=== PATIENT | male | born 1970 | race African-American/Black ===

== ENCOUNTER 2022-06-29 04:09 | Inpatient (IN) | payer MEDICAID ==
[~2022-06-29] VITALS: Ht 177.8 cm; Wt 73.0 kg
--- NOTE | 2022-06-29 06:18 | NUR ---
BIBS FOR ABDOMINAL PAIN RADIAITING TO THE BACK. -N/V/D. PT IS A/O X 4, VSS, NAD. TOMY ROBERT.
--- NOTE | 2022-06-29 06:23 | NUR ---
PT GIVEN CUP FOR URINE SAMPLE
--- NOTE | 2022-06-29 06:51 | NUR ---
COMPLIANCE REVIEWER AT BEDSIDE
[2022-06-29 07:00] LABS: BASOPHILS % (AUTO) 0.3 % (0.0-2.0); EOSINOPHILS % (AUTO) 0.6 % (0.0-6.0); HEMATOCRIT 26 % (39-51); HEMOGLOBIN 8.5 g/dL (13.5-17.5); LYMPHOCYTES # (AUTO) 0.8 K/uL (0.8-4.8); LYMPHOCYTES % (AUTO) 8.5 % (20.0-44.0); MEAN CORPUSCULAR HGB CONC 32 g/dl (31.0-36.0); MEAN CORPUSCULAR VOLUME 83 fL (80-96); MONOCYTES # (AUTO) 0.9 K/uL (0.1-1.30); MONOCYTES % (AUTO) 10.4 % (2.0-12.0); NEUTROPHILS # (AUTO) 7.1 K/uL (1.8-8.9); NEUTROPHILS % (AUTO) 80.2 % (43.0-81.0); PLATELET COUNT (AUTO) 502 K/uL (150-450); RED BLOOD CELL COUNT(AUTO) 3.18 MIL/uL (4.5-6.0); WHITE BLOOD COUNT (AUTO) 8.9 K/uL (4.3-11.0)
[2022-06-29] MEDS ORDERED: IV NS 0.9% 1,000 ML IV ONE (07:00)
--- NOTE | 2022-06-29 07:04 | NUR ---
REPORT GIVEN TO COLLEEN MENDOSA FOR CASSIDY
[2022-06-29 07:19] LABS: ALBUMIN 2.6 g/dL (3.4-5.0); BILIRUBIN,DIRECT 0.2 mg/dL (0.0-0.2); BILIRUBIN,TOTAL 0.8 mg/dL (0.2-1.0); POTASSIUM 4.2 mmol/L (3.5-5.1); TOTAL PROTEIN, SERUM 7.2 g/dL (6.4-8.2)
--- NOTE | 2022-06-29 08:10 | NUR ---
BLOOD CULTURES OBTAINED
--- NOTE | 2022-06-29 08:22 | NUR ---
COVID SWAB DONE. SENT TO LAB
[2022-06-29] MEDS ORDERED: PIPERACILLIN /TAZOBACTAM 3.375 G in IV D5W 50 ML IV ONE (08:30)
[2022-06-29] MEDS ORDERED: IOHEXOL-300 100 ML VIAL IV ONE (09:01)
[2022-06-29] MEDS ORDERED: CT SWABBABLE VALVE TRANS SET 1 EA INFUS.SET MC ONE (09:01)
[2022-06-29] MEDS ORDERED: IV NS 0.9% 250 ML IV ONE (09:01)
[2022-06-29] MEDS ORDERED: DIATR MEGLU/DIATRIZOATE SODIUM 30 ML BOTTLE (GASTROGRAPHIN) ONE (09:01)
--- NOTE | 2022-06-29 09:45 | NUR ---
ROOM [id number]
--- NOTE | 2022-06-29 10:00 | NUR ---
Report given to DEONDRE Chou
[2022-06-29 10:35] VITALS: BP 121/76
--- NOTE | 2022-06-29 10:35 | NUR ---
MS DRY WALL PLASTERER NOTES: RECEIVED REPORT BY PHONE FROM HUONG MACIAS RN. PT CAME TO UNIT VIA GURNEY, AMBULATED WITH STEADY GAIT TO BED. A/O X4, ABLE TO MAKE NEEDS KNOWN. VITALS WNL, ON RA WITH NO S/S OF SOB. DENIES PAIN AT THIS TIME. IV ACCESS AT L FA#20, SL, PATENT AND INTACT. SKIN ASSESSMENT DONE, NO ISSUES NOTED, BELONGINGS ACCOUNTED FOR AT BEDSIDE. ALL SAFETY MEASURES IN PLACE, CALL LIGHT AND TABLE WITHIN EASY REACH; WILL CONT WITH PLAN OF CARE DURING SHIFT.
--- NOTE | 2022-06-29 10:39 | NUR ---
PATIENT TRANSFERRED TO [facility] WITHOUT INCIDENT. ALL CARE ENDORSED TO DEONDRE TORRES
[2022-06-29] MEDS ORDERED: MORPHINE SULFATE INJ 2 MG/ML DISP.SYRIN IV PRN (13:30)
[2022-06-29] MEDS ORDERED: Z GUARD REMEDY 4 OZ OINT TP PRN (13:30)
[2022-06-29] MEDS ORDERED: ACETAMINOPHEN 325 MG TABLET PO PRN (13:30)
[2022-06-29] MEDS ORDERED: MAG HYDROX/AL HYDROX/SIMETH 30 ML UDC PO PRN (13:30)
[2022-06-29] MEDS ORDERED: HYDROCODONE/APAP 5/325MG TABLET PO PRN (13:30)
[2022-06-29] MEDS ORDERED: MAGNESIUM HYDROXIDE 30 ML UDC PO PRN (13:30)
[2022-06-29] MEDS ORDERED: ONDANSETRON HCL/PF 4 MG/2 ML VIAL IVP PRN (13:30)
[2022-06-29] MEDS: ZOSYN IVPB 3.375 G in IV D5W 50ml IV SCH ×2 (14:49→19:52)
[2022-06-29] MEDS: IV NS 0.9% 1,000 ML IV PRN (14:49)
[2022-06-29 15:57] VITALS: BP 129/83
--- NOTE | 2022-06-29 18:59 | NUR ---
MS RN CLOSING NOTES: PT ASLEEP, EASILY ROUSED, A/O X4, ABLE TO MAKE NEEDS KNOWN. VITALS WNL, ON RA WITH NO S/S OF SOB. DENIES PAIN AT THIS TIME. IV ACCESS AT L FA#20 RUNNING NS @ 75ML/HR. PT ON NPO STATUS. ALL SAFETY MEASURES IN PLACE, CALL LIGHT AND TABLE WITHIN EASY REACH; WILL ENDORSE TO PM SHIFT.
--- NOTE | 2022-06-29 19:34 | NUR ---
RN OPENING NOTE; RECEIVED PT IN BED AWAKED AOX4 ABLE TO MAKE NEEDS KNOWN,ON RM AIR ZBIGNIEW WELL SAT 99%,NO SOB/DISTRESS NOTED,NO COMPLAIN OF PAIN/DISCOMFORT AT THIS TIME,IV ACCESS ON LFA 20G WITH NS INFUSING WELL,SAFETY MEASURE IN PLACE,CALL LIGHT WITHIN REACH,WILL CONTINUE TO MONITOR.
[2022-06-29 19:46] LABS: BILIRUBIN,URINE NEGATIVE (NEGATIVE); COLOR,URINE YELLOW (YELLOW); LEUKOCYTE ESTERASE ,URINE NEGATIVE (NEGATIVE); NITRITE, URINE NEGATIVE (NEGATIVE); PROTEIN,URINE NEGATIVE (NEGATIVE); UGLUCOSE NEGATIVE (NEGATIVE)
[2022-06-29 20:00] VITALS: BP 118/67
[2022-06-29 20:07] LABS: BACTERIA,URINE None seen /HPF (None Seen); RBC,URINE 0-2 /HPF (0-2); SPERM,URINE Few /HPF (None Seen); SQUAMOUS EPITHELIAL CELL,UR Rare /HPF (None Seen); WBC,URINE NONE SEEN /HPF (0-3)
[2022-06-30] MEDS: ZOSYN IVPB 3.375 G in IV D5W 50ml IV SCH ×4 (02:19→21:13)
[2022-06-30 05:46] LABS: BASOPHILS # (AUTO) 0.1 K/uL (0.0-0.2); BASOPHILS % (AUTO) 0.8 % (0.0-2.0); EOSINOPHILS % (AUTO) 0.8 % (0.0-6.0); HEMATOCRIT 29 % (39-51); HEMOGLOBIN 9.1 g/dL (13.5-17.5); LYMPHOCYTES # (AUTO) 0.5 K/uL (0.8-4.8); LYMPHOCYTES % (AUTO) 7.1 % (20.0-44.0); MEAN CORPUSCULAR HGB CONC 32 g/dl (31.0-36.0); MEAN CORPUSCULAR VOLUME 82 fL (80-96); MONOCYTES # (AUTO) 0.5 K/uL (0.1-1.30); MONOCYTES % (AUTO) 7.4 % (2.0-12.0); NEUTROPHILS # (AUTO) 5.9 K/uL (1.8-8.9); NEUTROPHILS % (AUTO) 83.9 % (43.0-81.0); PLATELET COUNT (AUTO) 546 K/uL (150-450); RED BLOOD CELL COUNT(AUTO) 3.48 MIL/uL (4.5-6.0); WHITE BLOOD COUNT (AUTO) 7.1 K/uL (4.3-11.0)
[2022-06-30] MEDS: IV NS 0.9% 1,000 ML IV PRN ×2 (05:57→21:15)
--- NOTE | 2022-06-30 06:26 | NUR ---
RN CLOSING NOTE; PATIENT IN BED SLEEPING BUT EASY TO AROUSED'AOX4 ABLE TO MAKE NEEDS KNOWN,ON RM AIR ZBIGNIEW WELL SAT 99%,NO SOB/DISTRESS NOTED,NO COMPLAIN OF PAIN/DISCOMFORT DURING SHIFT,DUE MEDS GIVEN ORDER,ALL NEEDS ATTENDED,IV ACCESS ON LFA 20G WITH NS 75ML/HR INFUSING WELL,SAFETY MEASURE IN PLACE,CALL LIGHT WITHIN REACH,WILL ENDORSED TO NEXT SHIFT.
[2022-06-30 06:36] LABS: CALCIUM, SERUM 8.7 mg/dL (8.5-10.1); CREATININE 1.1 mg/dL (0.6-1.3); PHOSPHORUS 4.5 mg/dL (2.5-4.9)
[2022-06-30 07:00] VITALS: BP 122/58
--- NOTE | 2022-06-30 07:25 | NUR ---
MS RN OPENING NOTE RECEIVED PATIENT ASLEEP IN BED, AWAKENS TO VERBAL STIMULI, A/O X3, STABLE ON ROOM AIR, BREATHING EVEN AND UNLABORED. NO S/S OF DISTRESS NOTED; NO PAIN NOTED AT THIS TIME. WITH IV ACCESS AT LFA G#20 WITH RUNNING NS AT 75 ML/HOUR INFUSING WELL. SAFETY MEASURES IMPLEMENTED, BED LOCKED IN LOWEST POSITION, SIDE RAILS UP X 2, CALL LIGHT AND TABLE WITHIN REACH; WILL CONTINUE TO MONITOR PATIENT THROUGHOUT SHIFT.
--- NOTE | 2022-06-30 07:31 | NUR ---
RN NOTE; PT WAS NPO SINCE MIDNIGHT.
[2022-06-30 09:59] VITALS: BP 122/58
[2022-06-30 16:00] VITALS: BP 104/63
[2022-06-30] MEDS ORDERED: CLON0.5T PO (18:48)
--- NOTE | 2022-06-30 19:26 | NUR ---
MS RN CLOSING NOTE PATIENT AWAKE IN BED A/O X4. ON ROOM AIR, NO S/S OF DISTRESS AND NO SOB NOTED. ABLE TO MAKE NEEDS KNOWN. PATIENT HAS IV AT LFA WITH NS AT 75ML/HOUR, INFUSING WELL. DUE MEDICATIONS ADMINISTERED. ALL NEEDS ATTENDED AND ANTICIPATED. FALL AND SAFETY PRECAUTION IN PLACE: BED LOCKED AND AT THE LOWEST POSITION, SIDE RAILS UP X2, CALL LIGHT WITHIN REACH. WILL ENDORSE TO PARTNER NURSE.
--- NOTE | 2022-06-30 19:30 | NUR ---
MS RN OPENING NOTES RECEIVED PATIENT IN BED AWAKE, ALERT AND ORIENTED. A/O X 4. NO S/S OF PAIN NOTED AT THIS ITME. ON ROOM AIR, BREATHING EVEN AND UNLABORED, NO DISTRESS OR SOB NOTED. IV ACCESS LFA #20G RUNNING NS @ 75ML/HR, INFUSING WELL. SAFETY MEASURES IN PLACE WITH BED IN LOWEST LOCKED POSITION. SIDE RAILS UP X 2. CALL LIGHT AND TABLE WITHIN EASY REACH. WILL CONTINUE TO MONITOR THE PATIENT.
[2022-06-30 20:00] VITALS: BP 117/61
[2022-07-01] MEDS: ZOSYN IVPB 3.375 G in IV D5W 50ml IV SCH ×4 (02:20→20:10)
[2022-07-01 05:56] LABS: BASOPHILS % (AUTO) 0.8 % (0.0-2.0); EOSINOPHILS % (AUTO) 1.5 % (0.0-6.0); HEMATOCRIT 28 % (39-51); HEMOGLOBIN 8.6 g/dL (13.5-17.5); LYMPHOCYTES # (AUTO) 0.6 K/uL (0.8-4.8); LYMPHOCYTES % (AUTO) 10.4 % (20.0-44.0); MEAN CORPUSCULAR HGB CONC 31 g/dl (31.0-36.0); MEAN CORPUSCULAR VOLUME 83 fL (80-96); MONOCYTES # (AUTO) 0.5 K/uL (0.1-1.30); MONOCYTES % (AUTO) 9.4 % (2.0-12.0); NEUTROPHILS # (AUTO) 4.3 K/uL (1.8-8.9); NEUTROPHILS % (AUTO) 77.9 % (43.0-81.0); PLATELET COUNT (AUTO) 594 K/uL (150-450); RED BLOOD CELL COUNT(AUTO) 3.34 MIL/uL (4.5-6.0); WHITE BLOOD COUNT (AUTO) 5.6 K/uL (4.3-11.0)
[2022-07-01 06:07] LABS: CALCIUM, SERUM 8.5 mg/dL (8.5-10.1); CREATININE 1.2 mg/dL (0.6-1.3); PHOSPHORUS 4.3 mg/dL (2.5-4.9); POTASSIUM 3.6 mmol/L (3.5-5.1)
--- NOTE | 2022-07-01 07:00 | NUR ---
MS RN OPENING NOTES: RECEIVED PATIENT IN BED, ALERT/AWAKE AND ORIENTED X 3 AND ABLE TO MAKE NEEDS KNOWN. NO SOB OR CARDIAC DISTRESS NOTED.PT DENIES PAIN AT THIS TIME.ON NPO. IV ACCESS ON LFA GAUGE 20 PATENT AND INTACT AND INFUSING NS 1L@M 75ML/HR. SAFETY MEASURES MAINTAIN. BED LOCKED AND IN LOWEST POSITION. SIDE RAILS UP X2. CALL LIGHT IN EASY REACH AND WILL MONITOR ACCORDINGLY.
--- NOTE | 2022-07-01 07:00 | NUR ---
MS RN OPENING NOTES: RECEIVED PATIENT IN BED, ALERT/AWAKE AND ORIENTED X 4 AND ABLE TO MAKE NEEDS KNOWN. NO SOB OR CARDIAC DISTRESS NOTED.PT DENIES PAIN AT THIS TIME.IV ACCESS ON CAROLYN MIDLINE PATENT AND INTACT AND INFUSING NS 1L@M 75ML/HR. SAFETY MEASURES MAINTAIN. BED LOCKED AND IN LOWEST POSITION. SIDE RAILS UP X2. CALL LIGHT IN EASY REACH AND WILL MONITOR ACCORDINGLY.
--- NOTE | 2022-07-01 07:01 | NUR ---
MS RN CLOSING NOTES PATIENT IN BED AWAKE, ALERT AND ORIENTED. A/O X 4. NO S/S OF PAIN NOTED AT THIS ITME. ON ROOM AIR, BREATHING EVEN AND UNLABORED, NO DISTRESS OR SOB NOTED. IV ACCESS LFA #20G RUNNING NS @ 75ML/HR, INFUSING WELL. ALL NEEDS ATTENDED. SAFETY MEASURES MAINTAINED. WILL ENDORSE TO THE NEXT SHIFT.
[2022-07-01 08:28] VITALS: BP 107/56
[2022-07-01] MEDS: IV NS 0.9% 1,000 ML IV PRN (13:25)
[2022-07-01 16:14] VITALS: BP 96/48
--- NOTE | 2022-07-01 17:50 | NUR ---
RN NOTES: SEEN AND EXAMINED BY RENETTA PIERRE, ORDERED TO EDUCATE PT ABOUT DIVERTICULITIS AND REFER TO BARREL LAPPER, START FULL LIQUIDS IN AM AND ADVANCE TOLERATED. ORDERS NOTED AND CARRIED OUT.
--- NOTE | 2022-07-01 18:37 | NUR ---
MS RN CLOSING NOTES: PATIENT IN BED AWAKE, ALERT AND ORIENTED X 4 AND ABLE TO MAKE NEEDS KNOWN. NO COMPLAIN OF ABDOMINAL PAIN ON OUR SHIFT. NO CARDIAC DISTRESS NOTED. PT IS ON CLEAR LIQUIDS NOW AND TOLERATED WELL. IV ACCESS ON LFA GAUGE 20,PATENT, INTACT AND INFUSING NS 1L @75ML/HR. SAFETY MEASURES MAINTAINED: BED LOCKED AND IN LOWEST POSITION, SIDE RAILS UP X 2. CALL LIGHT IN EASY REACH FOR HELP. WILL ENDORSE TO [facility] SHIFT FOR CONTINUITY OF CARE.
--- NOTE | 2022-07-01 19:30 | NUR ---
noc rn opening note received patient in bed, a/ox3, no s.s of apparent distress on room air. denies pain at this time, LFA #20g running NS @75mls/hr. safety in bed, bed in lowest, locked position, call light within reach, side rails upX2. Patient encouraged to use the call light. will continue with patient's plan of care.
[2022-07-01 20:00] VITALS: BP 113/70
[2022-07-02] MEDS: ZOSYN IVPB 3.375 G in IV D5W 50ml IV SCH ×4 (02:01→20:00)
[2022-07-02] MEDS: IV NS 0.9% 1,000 ML IV PRN (02:55)
[2022-07-02 06:03] LABS: BASOPHILS % (AUTO) 0.9 % (0.0-2.0); EOSINOPHILS % (AUTO) 2.3 % (0.0-6.0); HEMATOCRIT 26 % (39-51); LYMPHOCYTES # (AUTO) 0.7 K/uL (0.8-4.8); LYMPHOCYTES % (AUTO) 18.2 % (20.0-44.0); MEAN CORPUSCULAR HGB CONC 32 g/dl (31.0-36.0); MEAN CORPUSCULAR VOLUME 82 fL (80-96); MONOCYTES # (AUTO) 0.5 K/uL (0.1-1.30); MONOCYTES % (AUTO) 11.8 % (2.0-12.0); NEUTROPHILS # (AUTO) 2.7 K/uL (1.8-8.9); NEUTROPHILS % (AUTO) 66.8 % (43.0-81.0); PLATELET COUNT (AUTO) 528 K/uL (150-450); RED BLOOD CELL COUNT(AUTO) 3.11 MIL/uL (4.5-6.0)
[2022-07-02 06:24] LABS: CALCIUM, SERUM 8.4 mg/dL (8.5-10.1); CREATININE 1.1 mg/dL (0.6-1.3); MAGNESIUM 2.2 mg/dL (1.8-2.4); PHOSPHORUS 3.6 mg/dL (2.5-4.9); POTASSIUM 3.8 mmol/L (3.5-5.1)
--- NOTE | 2022-07-02 07:00 | NUR ---
MS RN OPENING NOTES: RECEIVED PATIENT IN BED, ASLEEP AND EASILY AROUSED AND ORIENTED X 4 AND ABLE TO MAKE NEEDS KNOWN. NO SOB OR CARDIAC DISTRESS NOTED.PT DENIES PAIN AT THIS TIME.IV ACCESS ON CAROLYN MIDLINE PATENT AND INTACT AND INFUSING NS 1L@M 75ML/HR. SAFETY MEASURES MAINTAIN. BED LOCKED AND IN LOWEST POSITION. SIDE RAILS UP X2. CALL LIGHT IN EASY REACH AND WILL MONITOR ACCORDINGLY.
--- NOTE | 2022-07-02 07:20 | NUR ---
noc rn closing note patient in bed with eyes closed, easy to arouse no s/s of apparent distress on room air . did not c/o pain throughout shift. IV ns running @75mls/hr at this time. all needs attended. all scheduled medications administered. safety kept in place throughout shift. endorsed to Valeri morning shift rn for continuity of patient care.
[2022-07-02 08:16] VITALS: BP 94/55
[2022-07-02] MEDS: DOCUSATE SODIUM 100 MG CAPSULE PO SCH (08:42)
[2022-07-02 15:59] VITALS: BP 97/56
--- NOTE | 2022-07-02 16:47 | NUR ---
RN NOTES: SEEN AND EXAMINED BY RENETTA PIERRE. INFORMED THAT PT HAD BM AND ABLE TO WALK AND STABLE.ORDERED ADVANCE DIET TO SOFT DIET, EDUCATE ABOUT THE DISEASE, MAY DC IV FLUIDS.ORDERS NOTED AND CARRIED OUT.
--- NOTE | 2022-07-02 18:48 | NUR ---
MS RN CLOSING NOTES: PATIENT IN BED AWAKE, ALERT AND ORIENTED X 4 AND ABLE TO MAKE NEEDS KNOWN. NO COMPLAIN OF ABDOMINAL PAIN ON OUR SHIFT. NO CARDIAC DISTRESS NOTED. IV ACCESS ON LFA GAUGE 20,PATENT, INTACT AND SALINE LOCKED. SAFETY MEASURES MAINTAINED: BED LOCKED AND IN LOWEST POSITION, SIDERAILS UP X 2. CALL LIGHT IN EASY REACH FOR HELP. WILL ENDORSE TO [facility] SHIFT FOR CONTINUITY OF CARE.
--- NOTE | 2022-07-02 19:30 | NUR ---
noc rn opening note received patient in bed, a/ox4, no s/s of apparent distress on room air. denies pain at this time. Reports having X2 BM today. LFA #20g on saline lock. safety in place-- bed in lowest, locked position, call light within reach, side rails upX2. Patient encouraged to use the call light. will continue with patient's plan of care.
[2022-07-02 20:00] VITALS: BP 102/59
[2022-07-03] MEDS: ZOSYN IVPB 3.375 G in IV D5W 50ml IV SCH ×2 (02:11→08:32)
[2022-07-03 06:23] LABS: BASOPHILS % (AUTO) 0.5 % (0.0-2.0); EOSINOPHILS % (AUTO) 2.5 % (0.0-6.0); HEMATOCRIT 27 % (39-51); HEMOGLOBIN 8.4 g/dL (13.5-17.5); LYMPHOCYTES # (AUTO) 0.8 K/uL (0.8-4.8); LYMPHOCYTES % (AUTO) 18.2 % (20.0-44.0); MEAN CORPUSCULAR HGB CONC 31 g/dl (31.0-36.0); MEAN CORPUSCULAR VOLUME 82 fL (80-96); MONOCYTES # (AUTO) 0.4 K/uL (0.1-1.30); MONOCYTES % (AUTO) 9.3 % (2.0-12.0); NEUTROPHILS % (AUTO) 69.5 % (43.0-81.0); PLATELET COUNT (AUTO) 573 K/uL (150-450); RED BLOOD CELL COUNT(AUTO) 3.27 MIL/uL (4.5-6.0); WHITE BLOOD COUNT (AUTO) 4.3 K/uL (4.3-11.0)
[2022-07-03 06:50] LABS: CALCIUM, SERUM 8.6 mg/dL (8.5-10.1); PHOSPHORUS 3.6 mg/dL (2.5-4.9)
[2022-07-03 07:00] VITALS: BP 120/65
--- NOTE | 2022-07-03 07:30 | NUR ---
MS RN OPENING NOTES: RECEIVED PATIENT IN BED ASLEEP, EASILY ROUSED, A/OX 4, ABLE TO MAKE NEEDS KNOWN. ON RA WITH NO S/S OF SOB OR ACUTE DISTRESS, DENIES PAIN AT THIS TIME. IV ACCESS ON LFA #20 PATENT, INTACT AND SALINE LOCKED. SAFETY MEASURES MAINTAINED: BED LOCKED AND IN LOWEST POSITION, SIDERAILS UP X 2. CALL LIGHT AND TABLE WITHIN EASY REACH, WILL CONT WITH PLAN OF CARE DURING SHIFT.
--- NOTE | 2022-07-03 07:31 | NUR ---
noc rn closing needs attended. report given to Caro Izquierdo for continuity of patient care.
[2022-07-03] MEDS: DOCUSATE SODIUM 100 MG CAPSULE PO SCH (08:33)
[2022-07-03] MEDS ORDERED: AMOX-430 PO (12:08)
--- NOTE | 2022-07-03 13:00 | NUR ---
MS RN DC NOTES: PT IS CLEARED FOR DC. VITALS ARE WNL, STABLE ON RA. NO /S OF ACUTE DISTRESS. DC INSTRUCTIONS, BELONGINGS LISTS AND NEW MEDICATIONS DISCUSSED WITH PT, SIGNED DOCUMENTS. IV ACCESS AND ID BAND REMOVED. PT GIVEN [facility]OURCES, PT VERBALIZED HE WILL GO BACK TO PREVIOUS FACILITY, GIVEN BUS CARD. PT LEFT UNIT ON FOOT, AMBULATORY WITH STEADY GAIT.
== END 2022-07-03 13:00 | disposition home or self-care (01) | DRG 244 ==
LOC: ER 04:30 → MED 10:06
PROVIDERS: ADMIT Nurse Practitioner Acute Care; ATTEND Nurse Practitioner Acute Care
DX: K57.20 Diverticulitis of large intestine with perforation and abscess without bleeding (principal); D63.8 Anemia in other chronic diseases classified elsewhere; E87.1 Hypo-osmolality and hyponatremia; K56.0 Paralytic ileus; E86.1 Hypovolemia; D75.839 Thrombocytosis, unspecified; K59.00 Constipation, unspecified; N43.3 Hydrocele, unspecified; F17.210 Nicotine dependence, cigarettes, uncomplicated; Z59.00 Homelessness unspecified; Z20.822 Contact with and (suspected) exposure to COVID-19; F15.10 Other stimulant abuse, uncomplicated
CPT/HCPCS: 36415; 80048-TC; 80061-TC; 80076-TC; 81001; 83690-TC; 83735-TC; 84100-TC; 85025-TC; 87040-TC; 87081-TC; 87086-TC; 97110-TC; 97116-TC; A4223; C9803; G0378; G0480; J2543; J7030; J7050; J7060; Q9963; Q9967

== ENCOUNTER 2023-08-20 21:58 | Inpatient (IN) | payer MEDICAID ==
[~2023-08-20] VITALS: Ht 170.2 cm; Wt 76.7 kg
[~2023-08-20 21:58] MED LIST: AMOX-430 PO; CLON0.5T PO
[2023-08-20] MEDS ORDERED: MORPHINE SULFATE INJ 4 MG/ML DISP.SYRIN ONE (22:41)
[2023-08-20] MEDS ORDERED: ONDANSETRON HCL/PF 4 MG/2 ML VIAL ONE (22:41)
[2023-08-20] MEDS: ONDANSETRON HCL/PF 4 MG/2 ML VIAL IVP ONE (23:00)
[2023-08-20] MEDS: MORPHINE SULFATE INJ 2 MG/ML DISP.SYRIN IV ONE (23:00)
[2023-08-20] MEDS: IV NS 0.9% 1,000 ML BAG IV ONE (23:00)
[2023-08-20 23:36] LABS: APPEARANCE,URINE CLEAR (CLEAR); BILIRUBIN,URINE NEGATIVE (NEGATIVE); BLOOD, URINE NEGATIVE Ery/uL (NEGATIVE); COLOR,URINE YELLOW (YELLOW); KETONES,URINE NEGATIVE (NEGATIVE); LEUKOCYTE ESTERASE ,URINE NEGATIVE (NEGATIVE); NITRITE, URINE NEGATIVE (NEGATIVE); PROTEIN,URINE NEGATIVE (NEGATIVE); UGLUCOSE NEGATIVE (NEGATIVE); UROBILINOGEN,URINE 0.2 EU/dL (0.2)
[2023-08-20 23:41] LABS: ALANINE AMINOTRANSFERASE 7 U/L (12-78); ALKALINE PHOSPHATASE 78 U/L (46-116); ASPARTATE AMINOTRANSFERASE 13 U/L (15-37); BILIRUBIN,DIRECT 0.1 mg/dL (0.0-0.2); BILIRUBIN,TOTAL 0.3 mg/dL (0.2-1.0); CALCIUM, SERUM 8.3 mg/dL (8.5-10.1); CARBON DIOXIDE 22 mmol/L (21-32); CHLORIDE 103 mmol/L (98-107); CREATININE 0.9 mg/dL (0.6-1.3); GLUCOSE 90 mg/dL (74-106); LIPASE 42 U/L (16-77); POTASSIUM 3.4 mmol/L (3.5-5.1); SODIUM SERUM 136 mmol/L (136-145); UREA NITROGEN, BLOOD 7 mg/dL (7-18)
[2023-08-20 23:50] LABS: INR 1.06 (0.91-1.10); PARTIAL THROMBOPLASTIN TIME 20.7 SEC (24.3-34.3); PROTHROMBIN TIME 11.2 SECS (9.2-11.1)
[2023-08-21] VITALS (19 sets, daily range): BP systolic 109–136; BP diastolic 43–81; TEMP 97–99.2; O2SAT 98–100
[2023-08-21 00:15] LABS: BASOPHILS % (AUTO) 0.4 % (0.0-2.0); EOSINOPHILS % (AUTO) 0.5 % (0.0-6.0); LYMPHOCYTES # (AUTO) 1.7 K/uL (0.8-4.8); LYMPHOCYTES % (AUTO) 25.1 % (20.0-44.0); MEAN CORPUSCULAR HEMOGLOBIN 17 PG (26.0-33.0); MEAN CORPUSCULAR HGB CONC 28 g/dl (31.0-36.0); MEAN CORPUSCULAR VOLUME 61 fL (80-96); MONOCYTES # (AUTO) 0.7 K/uL (0.1-1.30); MONOCYTES % (AUTO) 9.8 % (2.0-12.0); NEUTROPHILS # (AUTO) 4.3 K/uL (1.8-8.9); NEUTROPHILS % (AUTO) 64.2 % (43.0-81.0); PLATELET COUNT (AUTO) 573 K/uL (150-450); RED BLOOD CELL COUNT(AUTO) 2.17 MIL/uL (4.5-6.0); RED CELL DISTRIBUTION WIDTH 24.9 % (11.5-15.0); WHITE BLOOD COUNT (AUTO) 6.7 K/uL (4.3-11.0)
[2023-08-21 00:22] LABS: HEMATOCRIT 13 % (39-51); HEMOGLOBIN 3.7 g/dL (13.5-17.5)
[2023-08-21] MEDS ORDERED: IOHEXOL-350 100 ML VIAL IV ONE (01:21)
[2023-08-21] MEDS ORDERED: CT SWABBABLE VALVE TRANS SET 1 EA INFUS.SET MC ONE (01:21)
[2023-08-21] MEDS ORDERED: IV NS 0.9% 250 ML IV ONE (01:21)
[2023-08-21] MEDS ORDERED: Z GUARD REMEDY 4 OZ OINT TP PRN (01:30)
[2023-08-21] MEDS ORDERED: ONDANSETRON HCL/PF 4 MG/2 ML VIAL IVP PRN (01:30)
[2023-08-21] MEDS ORDERED: MAGNESIUM HYDROXIDE 30 ML UDC PO PRN (01:30)
[2023-08-21] MEDS ORDERED: MAG HYDROX/AL HYDROX/SIMETH 30 ML UDC PO PRN (01:30)
[2023-08-21] MEDS ORDERED: ACETAMINOPHEN 325 MG TABLET PO PRN (01:30)
[2023-08-21 02:21] LABS: NEUTROPHILS % (MANUAL) 73 (42-76)
[2023-08-21 02:22] LABS: ANISOCYTOSIS 2+; EOSINOPHILS % (MANUAL) 1 % (0-4); HYPOCHROMASIA 3+; LYMPHOCYTES % (MANUAL) 15 % (16-48); MONOCYTES % (MANUAL) 11 % (0-11.0); PLATELET ESTIMATE ADEQUATE
[2023-08-21] MEDS: POTASSIUM CL. PREMIX PERIPHER. 50 ML IV SCH (05:55)
[2023-08-21] MEDS: POTASSIUM CL. PREMIX PERIPHER. 50 ML ONE (06:35)
[2023-08-21] MEDS: PANTOPRAZOLE 40 MG VIAL IV SCH (08:22)
[2023-08-21] MEDS: IV NS 0.9% 1,000 ML IV SCH (10:42)
[2023-08-21 12:34] LABS: CALCIUM, SERUM 8.2 mg/dL (8.5-10.1); CREATININE 0.8 mg/dL (0.6-1.3); POTASSIUM 3.5 mmol/L (3.5-5.1)
[2023-08-21 12:39] LABS: IRON, SERUM 80 ug/dl (50-175); TOTAL IRON BINDING CAPACITY 251 ug/dl (250-450)
[2023-08-21 13:24] LABS: BASOPHILS % (AUTO) 0.5 % (0.0-2.0); EOSINOPHILS % (AUTO) 0.4 % (0.0-6.0); LYMPHOCYTES # (AUTO) 1.6 K/uL (0.8-4.8); LYMPHOCYTES % (AUTO) 26.2 % (20.0-44.0); MEAN CORPUSCULAR HEMOGLOBIN 21 PG (26.0-33.0); MEAN CORPUSCULAR HGB CONC 31 g/dl (31.0-36.0); MEAN CORPUSCULAR VOLUME 67 fL (80-96); MONOCYTES # (AUTO) 0.4 K/uL (0.1-1.30); MONOCYTES % (AUTO) 6.8 % (2.0-12.0); NEUTROPHILS # (AUTO) 4.2 K/uL (1.8-8.9); NEUTROPHILS % (AUTO) 66.1 % (43.0-81.0); PLATELET COUNT (AUTO) 539 K/uL (150-450); RED BLOOD CELL COUNT(AUTO) 2.82 MIL/uL (4.5-6.0); RED CELL DISTRIBUTION WIDTH 30.3 % (11.5-15.0); WHITE BLOOD COUNT (AUTO) 6.3 K/uL (4.3-11.0)
[2023-08-21 13:33] LABS: HEMATOCRIT 19 % (39-51); HEMOGLOBIN 5.8 g/dL (13.5-17.5)
[2023-08-21 14:21] LABS: LYMPHOCYTES % (MANUAL) 16 % (16-48); MONOCYTES % (MANUAL) 6 % (0-11.0); NEUTROPHILS % (MANUAL) 78 (42-76); PLATELET ESTIMATE INCREASED
[2023-08-21 14:22] LABS: HYPOCHROMASIA 1+
[2023-08-21 14:23] LABS: ANISOCYTOSIS 2+
[2023-08-22] VITALS (7 sets, daily range): BP systolic 110–128; BP diastolic 68–89; TEMP 97.8–98.9; O2SAT 100
[2023-08-22 02:35] LABS: HEMOGLOBIN 7.7 g/dL (13.5-17.5)
[2023-08-22 07:41] LABS: BASOPHILS % (AUTO) 0.4 % (0.0-2.0); EOSINOPHILS % (AUTO) 0.6 % (0.0-6.0); HEMATOCRIT 24 % (39-51); HEMOGLOBIN 7.9 g/dL (13.5-17.5); LYMPHOCYTES # (AUTO) 1.2 K/uL (0.8-4.8); LYMPHOCYTES % (AUTO) 17.4 % (20.0-44.0); MEAN CORPUSCULAR HEMOGLOBIN 23 PG (26.0-33.0); MEAN CORPUSCULAR HGB CONC 32 g/dl (31.0-36.0); MEAN CORPUSCULAR VOLUME 71 fL (80-96); MONOCYTES # (AUTO) 0.6 K/uL (0.1-1.30); MONOCYTES % (AUTO) 8.2 % (2.0-12.0); NEUTROPHILS # (AUTO) 5.1 K/uL (1.8-8.9); NEUTROPHILS % (AUTO) 73.4 % (43.0-81.0); PLATELET COUNT (AUTO) 537 K/uL (150-450); RED BLOOD CELL COUNT(AUTO) 3.42 MIL/uL (4.5-6.0); RED CELL DISTRIBUTION WIDTH 31.2 % (11.5-15.0)
[2023-08-22 07:46] LABS: CALCIUM, SERUM 8.5 mg/dL (8.5-10.1); CREATININE 0.8 mg/dL (0.6-1.3); MAGNESIUM 2.1 mg/dL (1.8-2.4); PHOSPHORUS 3.4 mg/dL (2.5-4.9); POTASSIUM 3.7 mmol/L (3.5-5.1)
[2023-08-22 07:59] LABS: THYROID STIMULATING HORMONE 1.11 uIU/mL (0.358-3.74)
[2023-08-22] MEDS ORDERED: IOHEXOL-300 100 ML VIAL IV ONE (10:26)
[2023-08-22] MEDS ORDERED: IV NS 0.9% 250 ML IV ONE (10:26)
[2023-08-22 12:49] LABS: HEMOGLOBIN 8.2 g/dL (13.5-17.5)
[2023-08-22 14:39] LABS: ANISOCYTOSIS 2+; HYPOCHROMASIA 1+; LYMPHOCYTES % (MANUAL) 18 % (16-48); MONOCYTES % (MANUAL) 8 % (0-11.0); NEUTROPHILS % (MANUAL) 74 (42-76); PLATELET ESTIMATE INCREASED; TARGET CELLS 1+
[2023-08-22] MEDS: MORPHINE SULFATE INJ 2 MG/ML DISP.SYRIN IV PRN (20:37)
[2023-08-22] MEDS: IV NS 0.9% 1,000 ML IV PRN (20:37)
[2023-08-22 22:32] LABS: OCCULT BLOOD STOOL POSITIVE (NEGATIVE)
[2023-08-23] VITALS: BP 120/75; TEMP 98.9; O2SAT 100
[2023-08-23 04:00] VITALS: BP 125/70; TEMP 98; O2SAT 100
[2023-08-23 07:10] LABS: FOLIC ACID 6.3 ng/mL (>3.0)
[2023-08-23 07:14] LABS: BASOPHILS % (AUTO) 0.5 % (0.0-2.0); EOSINOPHILS % (AUTO) 0.6 % (0.0-6.0); HEMATOCRIT 23 % (39-51); HEMOGLOBIN 7.4 g/dL (13.5-17.5); LYMPHOCYTES # (AUTO) 1.4 K/uL (0.8-4.8); LYMPHOCYTES % (AUTO) 19.7 % (20.0-44.0); MEAN CORPUSCULAR HEMOGLOBIN 23 PG (26.0-33.0); MEAN CORPUSCULAR HGB CONC 32 g/dl (31.0-36.0); MEAN CORPUSCULAR VOLUME 71 fL (80-96); MONOCYTES # (AUTO) 0.7 K/uL (0.1-1.30); MONOCYTES % (AUTO) 9.7 % (2.0-12.0); NEUTROPHILS % (AUTO) 69.5 % (43.0-81.0); PLATELET COUNT (AUTO) 498 K/uL (150-450); RED BLOOD CELL COUNT(AUTO) 3.23 MIL/uL (4.5-6.0); WHITE BLOOD COUNT (AUTO) 7.1 K/uL (4.3-11.0)
[2023-08-23 07:33] LABS: CALCIUM, SERUM 8.2 mg/dL (8.5-10.1); CREATININE 0.8 mg/dL (0.6-1.3); MAGNESIUM 1.8 mg/dL (1.8-2.4); PHOSPHORUS 3.3 mg/dL (2.5-4.9); POTASSIUM 3.8 mmol/L (3.5-5.1)
[2023-08-23 08:00] VITALS: BP 139/92; TEMP 97.8; O2SAT 99
[2023-08-23 08:07] LABS: FREE KAPPA LT CHAINS SERUM 55.7 mg/L (3.3-19.4); KAPPA/LAMBDA RATIO SERUM 1.47 (0.26-1.65)
[2023-08-23 09:09] LABS: IMMUNOGLOBULIN A, SERUM 367 mg/dL (90-386); IMMUNOGLOBULIN G, SERUM 1493 mg/dL (603-1613); IMMUNOGLOBULIN M, SERUM 73 mg/dL (20-172)
[2023-08-23 12:00] VITALS: BP 130/88; TEMP 97.8; O2SAT 99
[2023-08-23 16:00] VITALS: BP 123/72; TEMP 97.9; O2SAT 99
[2023-08-23 16:06] LABS: *SPE A/G RATIO 0.6 (0.7-1.7); *SPE ALBUMIN 2.2 g/dL (2.9-4.4); *SPE ALPHA-1-GLOBULIN 0.4 g/dL (0.0-0.4); *SPE ALPHA-2-GLOBULIN 0.8 g/dL (0.4-1.0); *SPE GLOBULIN, TOTAL 3.7 g/dL (2.2-3.9); *SPE M-SPIKE Not Observed g/dL (Not Observed); *SPE PROTEIN TOTAL 5.9 g/dL (6.0-8.5); *SPEGAMMA GLOBULIN 1.5 g/dL (0.4-1.8)
[2023-08-23 20:00] VITALS: BP 110/60; TEMP 98.6; O2SAT 100
[2023-08-24] VITALS (9 sets, daily range): BP systolic 108–127; BP diastolic 61–88; TEMP 98.1–98.6; O2SAT 100
[2023-08-24] MEDS: ZOLPIDEM TARTRATE 5 MG TABLET PO PRN (03:40)
[2023-08-24 08:17] LABS: BASOPHILS % (AUTO) 0.5 % (0.0-2.0); EOSINOPHILS % (AUTO) 0.4 % (0.0-6.0); HEMATOCRIT 24 % (39-51); HEMOGLOBIN 7.5 g/dL (13.5-17.5); LYMPHOCYTES # (AUTO) 1.3 K/uL (0.8-4.8); LYMPHOCYTES % (AUTO) 15.3 % (20.0-44.0); MEAN CORPUSCULAR HEMOGLOBIN 23 PG (26.0-33.0); MEAN CORPUSCULAR HGB CONC 32 g/dl (31.0-36.0); MEAN CORPUSCULAR VOLUME 72 fL (80-96); MONOCYTES # (AUTO) 0.7 K/uL (0.1-1.30); MONOCYTES % (AUTO) 7.8 % (2.0-12.0); NEUTROPHILS # (AUTO) 6.5 K/uL (1.8-8.9); PLATELET COUNT (AUTO) 486 K/uL (150-450); RED BLOOD CELL COUNT(AUTO) 3.31 MIL/uL (4.5-6.0); RED CELL DISTRIBUTION WIDTH 33.3 % (11.5-15.0); WHITE BLOOD COUNT (AUTO) 8.5 K/uL (4.3-11.0)
[2023-08-24 10:17] LABS: CALCIUM, SERUM 8.3 mg/dL (8.5-10.1); CREATININE 0.8 mg/dL (0.6-1.3); POTASSIUM 3.6 mmol/L (3.5-5.1)
[2023-08-24 17:03] LABS: BASOPHILS % (AUTO) 0.5 % (0.0-2.0); EOSINOPHILS % (AUTO) 0.5 % (0.0-6.0); HEMATOCRIT 28 % (39-51); LYMPHOCYTES # (AUTO) 1.3 K/uL (0.8-4.8); LYMPHOCYTES % (AUTO) 15.8 % (20.0-44.0); MEAN CORPUSCULAR HEMOGLOBIN 24 PG (26.0-33.0); MEAN CORPUSCULAR HGB CONC 32 g/dl (31.0-36.0); MEAN CORPUSCULAR VOLUME 75 fL (80-96); MONOCYTES # (AUTO) 0.8 K/uL (0.1-1.30); MONOCYTES % (AUTO) 9.2 % (2.0-12.0); NEUTROPHILS # (AUTO) 6.1 K/uL (1.8-8.9); PLATELET COUNT (AUTO) 466 K/uL (150-450); RED BLOOD CELL COUNT(AUTO) 3.76 MIL/uL (4.5-6.0); RED CELL DISTRIBUTION WIDTH 32.3 % (11.5-15.0); WHITE BLOOD COUNT (AUTO) 8.2 K/uL (4.3-11.0)
[2023-08-24] MEDS: SOD FERRIC GLUC 125 MG in IV NS 0.9% 100 ML IV SCH (18:39)
[2023-08-24 19:17] LABS: LYMPHOCYTES % (MANUAL) 11 % (16-48); MONOCYTES % (MANUAL) 9 % (0-11.0); NEUTROPHILS % (MANUAL) 80 (42-76); PLATELET ESTIMATE ADEQUATE
[2023-08-24 19:19] LABS: ANISOCYTOSIS 2+; HYPOCHROMASIA 2+; TARGET CELLS 1+
[2023-08-25] VITALS: BP 133/66; TEMP 99; O2SAT 100
[2023-08-25 07:38] LABS: BASOPHILS % (AUTO) 0.3 % (0.0-2.0); EOSINOPHILS % (AUTO) 0.5 % (0.0-6.0); HEMATOCRIT 25 % (39-51); HEMOGLOBIN 8.1 g/dL (13.5-17.5); LYMPHOCYTES # (AUTO) 1.1 K/uL (0.8-4.8); LYMPHOCYTES % (AUTO) 15.3 % (20.0-44.0); MEAN CORPUSCULAR HEMOGLOBIN 24 PG (26.0-33.0); MEAN CORPUSCULAR HGB CONC 33 g/dl (31.0-36.0); MEAN CORPUSCULAR VOLUME 74 fL (80-96); MONOCYTES # (AUTO) 0.6 K/uL (0.1-1.30); MONOCYTES % (AUTO) 8.5 % (2.0-12.0); NEUTROPHILS # (AUTO) 5.2 K/uL (1.8-8.9); NEUTROPHILS % (AUTO) 75.4 % (43.0-81.0); PLATELET COUNT (AUTO) 478 K/uL (150-450); RED BLOOD CELL COUNT(AUTO) 3.39 MIL/uL (4.5-6.0); RED CELL DISTRIBUTION WIDTH 32.4 % (11.5-15.0); WHITE BLOOD COUNT (AUTO) 6.9 K/uL (4.3-11.0)
[2023-08-25 07:47] LABS: CALCIUM, SERUM 8.1 mg/dL (8.5-10.1); CREATININE 0.7 mg/dL (0.6-1.3); POTASSIUM 3.9 mmol/L (3.5-5.1)
[2023-08-25 08:00] VITALS: BP 116/65; TEMP 98.4; O2SAT 100
[2023-08-25] MEDS: PANTOPRAZOLE 40 MG TABLET.DR PO SCH (09:18)
[2023-08-25] MEDS ORDERED: PANT40TA49 PO (11:03)
== END 2023-08-25 16:12 | disposition home or self-care (01) | DRG 240 ==
LOC: ER 22:02 → TELE1 08-21 01:27 → MEDSG1 08-22 11:28
PROVIDERS: ADMIT Nurse Practitioner Acute Care; ATTEND Nurse Practitioner Acute Care
PROC: 30233N1 Transfusion of Nonautologous Red Blood Cells into Peripheral Vein, Percutaneous Approach (ICD-10-PCS; principal; 2023-08-21)
DX: C18.9 Malignant neoplasm of colon, unspecified (principal); I26.99 Other pulmonary embolism without acute cor pulmonale; E43 Unspecified severe protein-calorie malnutrition; E88.09 Other disorders of plasma-protein metabolism, not elsewhere classified; D50.0 Iron deficiency anemia secondary to blood loss (chronic); F17.200 Nicotine dependence, unspecified, uncomplicated; C78.6 Secondary malignant neoplasm of retroperitoneum and peritoneum; E87.6 Hypokalemia; Z68.26 Body mass index [BMI] 26.0-26.9, adult; Z59.00 Homelessness unspecified; Z79.899 Other long term (current) drug therapy; N30.90 Cystitis, unspecified without hematuria; D75.839 Thrombocytosis, unspecified; K92.2 Gastrointestinal hemorrhage, unspecified; B96.81 Helicobacter pylori [H. pylori] as the cause of diseases classified elsewhere
CPT/HCPCS: 36415; 71045-TC; 80048-TC; 80076-TC; 82272-TC; 82378; 82607-TC; 82728-TC; 82784; 83540-TC; 83690-TC; 83735-TC; 84100-TC; 84155; 84165; 84443-TC; 84484-TC; 85025-TC; 85027-TC; 85730-TC; 86334; 86850-TC; 87081-TC; 93970-TC; 97112-TC; 97116-TC; 97530-TC; 98960; A4223; G0378; J2270; J2405; J2470; J2916; J3480; J7030; J7040; J7050; P9016; Q9967

== ENCOUNTER 2023-12-13 01:50 | Emergency (ER) | payer MEDICAID ==
[~2023-12-13] VITALS: Ht 177.8 cm; Wt 81.6 kg
[~2023-12-13 01:50] MED LIST changes: -AMOX-430 PO; -CLON0.5T PO; +PANT40TA49 PO
[2023-12-13 02:10] VITALS: BP 121/82; TEMP 97.7; O2SAT 99
== END 2023-12-13 02:20 | disposition left against medical advice (07) ==
LOC: ER 01:54
DX: R53.1 Weakness (principal); Z53.21 Procedure and treatment not carried out due to patient leaving prior to being seen by health care provider